=== PATIENT | female | born 1980 | race Caucasian/White ===

== ENCOUNTER 2024-04-09 18:24 | Inpatient (IN) ==
[2024-04-09] MEDS: ONDANSETRON 4 MG/2 ML VIAL IV ONE (19:28)
[2024-04-09] MEDS: 0.9 % SODIUM CHLORIDE 1,000 ML IV ONE (19:28)
[2024-04-09] MEDS: PHENobarb/HYOSCY/ATROPINE/SCOP 1 DOSE BOTTLE PO ONE (19:29)
[2024-04-09] MEDS: MAG HYDROX/AL HYDROX/SIMETH 30 ML ORAL.SUSP PO ONE (19:59)
[2024-04-09] MEDS: DICYCLOMINE 20 MG/2 ML VIAL IM ONE (19:59)
[2024-04-09 20:34] LABS: ALT/SGPT 325 U/L (<40); AST/SGOT 248 U/L (<32); Albumin/Globulin Ratio 1.2 (1.0-2.3); Alkaline Phosphatase 355 U/L (39-117); Bilirubin,Total 0.5 mg/dL (0.1-1.0); Blood Urea Nitrogen 11 mg/dL (6-20); Calcium 9.2 mg/dL (8.6-10.4); Carbon Dioxide 22 mmol/L (22-30); Chloride 102 mmol/L (96-108); Globulin 3.3 gm/dL (2.2-3.7); Glomerular Filtration Rate 111; Glucose 109 mg/dL (70-105); Potassium 3.6 mmol/L (3.3-5.1); Sodium 141 mmol/L (133-145)
[2024-04-09] MEDS: PIPERACILLIN SODIUM/TAZOBACTAM 4.5 GM in DEXTROSE 5% IN WATER 50 ML IV SCH (20:35)
[2024-04-09 21:02] LABS: Basophils # (Auto) 0.03 K/mcL (0.00-0.30); Basophils % (Auto) 0.4 % (0.0-2.0); Eosinophils # (Auto) 0.02 K/mcL (0.00-0.70); Eosinophils % (Auto) 0.3 % (0.0-7.0); Hematocrit 37.8 % (34.1-44.9); Hemoglobin 12.9 g/dL (11.2-15.7); Lymphocytes # (Auto) 4.89 K/mcL (1.50-4.80); Lymphocytes % (Auto) 69.8 % (15.5-49.0); Mean Cell Volume 89.2 fL (80.0-100.0); Mean Corpuscular HGB Conc 34.1 g/dL (31.0-36.0); Mean Platelet Volume 10.3 fL (8.8-12.5); Monocytes % (Auto) 7.1 % (1.0-12.0); Neutrophils % (Auto) 21.5 % (38.0-78.0); Platelet Count 181 K/mcL (140-440); RBC 4.24 M/mcL (3.59-5.38); Red Cell Distribution Width 14.1 % (11.5-14.5)
[2024-04-09] MEDS: morphine 4 MG/ML VIAL IV PRN (21:06)
[2024-04-09] MEDS: 0.9 % SODIUM CHLORIDE 10 ML SYRINGE IV SCH (22:21)
[2024-04-09] MEDS: 0.9 % SODIUM CHLORIDE 1,000 ML IV SCH ×2 (22:21)
[2024-04-09 22:41] LABS: Appearance,Urine Clear (Clear); Bacteria,Urine 0 /hpf (0); Bilirubin,Urine Negative (Negative); Calcium Oxalate Crystals,Urine Few /hpf; Color,Urine Yellow; Culture Indicated,Urine No; Glucose,Urine (UA) Negative (Negative); Ketones,Urine Trace mg/dL (Negative); Leukocyte Esterase,Urine Negative /uL (Negative); Mucus,Urine Many /hpf; Nitrate,Urine Negative (Negative); PH,Urine 6.5 (5.0-9.0); Protein,Urine 30 mg/dL (Negative); Specific Gravity,Urine 1.025 (1.000-1.035); Urine Blood Trace-intact ery/mcL (Negative); Urine RBC 3 /hpf (0-3); Urine Squamous Epithelial Cell 3 /hpf (0-4); Urine WBC 4 /hpf (0-4)
[2024-04-09] MEDS: HYDROmorphone 1 MG/ML SYRINGE IV PRN (23:19)
[2024-04-09] MEDS: ONDANSETRON 4 MG/2 ML VIAL IV PRN (23:19)
[2024-04-10] MEDS: PIPERACILLIN SODIUM/TAZOBACTAM 4.5 GM in DEXTROSE 5% IN WATER 100 ML IV SCH (02:22)
[2024-04-10 06:44] LABS: Basophils # (Auto) 0.02 K/mcL (0.00-0.30); Basophils % (Auto) 0.3 % (0.0-2.0); Eosinophils # (Auto) 0.02 K/mcL (0.00-0.70); Eosinophils % (Auto) 0.3 % (0.0-7.0); Hemoglobin 11.4 g/dL (11.2-15.7); Lymphocytes # (Auto) 4.24 K/mcL (1.50-4.80); Lymphocytes % (Auto) 68.4 % (15.5-49.0); Mean Cell Volume 91.4 fL (80.0-100.0); Mean Corpuscular HGB Conc 33.5 g/dL (31.0-36.0); Mean Platelet Volume 9.4 fL (8.8-12.5); Monocytes # (Auto) 0.34 K/mcL (0.10-0.90); Monocytes % (Auto) 5.5 % (1.0-12.0); Platelet Count 163 K/mcL (140-440); RBC 3.72 M/mcL (3.59-5.38); Red Cell Distribution Width 14.2 % (11.5-14.5); WBC 6.2 K/mcL (4.5-11.0)
[2024-04-10 06:55] LABS: ALT/SGPT 276 U/L (<40); AST/SGOT 194 U/L (<32); Albumin 3.5 gm/dL (3.2-5.2); Albumin/Globulin Ratio 1.3 (1.0-2.3); Alkaline Phosphatase 300 U/L (39-117); Bilirubin,Direct 0.4 mg/dL (<0.3); Bilirubin,Total 0.6 mg/dL (0.1-1.0); Blood Urea Nitrogen 8 mg/dL (6-20); Calcium 8.5 mg/dL (8.6-10.4); Carbon Dioxide 24 mmol/L (22-30); Chloride 104 mmol/L (96-108); Globulin 2.7 gm/dL (2.2-3.7); Glomerular Filtration Rate 111; Glucose 88 mg/dL (70-105); Lactate Dehydrogenase 425 U/L (135-225); Phosphorous 2.5 mg/dL (2.5-4.5); Potassium 3.7 mmol/L (3.3-5.1); Sodium 138 mmol/L (133-145); Triglycerides 99 mg/dL (<150)
[2024-04-10] MEDS ORDERED: METHOCARBAMOL 750 MG TABLET PO PRN (11:46)
[2024-04-10] MEDS: HYDROcodone/APAP 10/325MG TABLET PO PRN (16:16)
[2024-04-10] MEDS: LORazepam 2 MG/ML VIAL IV ONE (18:03)
[2024-04-10 21:10] LABS: Appearance,Urine Clear (Clear); Bacteria,Urine 0 /hpf (0); Bilirubin,Urine Negative (Negative); Color,Urine Yellow; Culture Indicated,Urine No; Glucose,Urine (UA) Negative (Negative); Ketones,Urine Negative (Negative); Leukocyte Esterase,Urine Negative /uL (Negative); Nitrate,Urine Negative (Negative); Protein,Urine Negative (Negative); Urine Blood Small ery/mcL (Negative); Urine RBC 1 /hpf (0-3); Urine Squamous Epithelial Cell 8 /hpf (0-4); Urine WBC 2 /hpf (0-4); Urobilinogen,Urine Normal
[2024-04-11] MEDS ORDERED: IPRATROPIUM/ALBUTEROL 3 ML AMPUL.NEB NEB PRN ×2 (08:30→11:01)
[2024-04-11] MEDS: SCOPOLAMINE 1 PATCH PATCH TOPICAL PRN (08:33)
[2024-04-11] MEDS ORDERED: fentaNYL 100 MCG/2 ML VIAL ONE (08:59)
[2024-04-11] MEDS ORDERED: KETAMINE 50 MG/ML Syringe IV ONE (08:59)
[2024-04-11] MEDS ORDERED: PROPOFOL 200 MG/20 ML VIAL IV ONE (08:59)
[2024-04-11] MEDS ORDERED: DEXAMETHASONE 10 MG/ML VIAL ONE (09:00)
[2024-04-11] MEDS ORDERED: ROCURONIUM 10 MG/ML ML IV ONE (09:00)
[2024-04-11] MEDS ORDERED: ONDANSETRON 4 MG/2 ML VIAL ONE (09:00)
[2024-04-11] MEDS ORDERED: LIDOCAINE 2% PF 5 ML VIAL ONE (09:00)
[2024-04-11] MEDS ORDERED: DEXTROAMPHETAMINE AMPHETAMINE 15 MG PO PRN (09:00)
[2024-04-11] MEDS ORDERED: MAGNESIUM SULFATE 2 GM/50 ML BAG IV ONE (09:00)
[2024-04-11] MEDS: Fluvoxamine 50 mg tablet PO SCH (09:03)
[2024-04-11] MEDS ORDERED: ePHEDrine 50 MG/5 ML SYRINGE (ANEST) IV ONE (10:17)
[2024-04-11] MEDS ORDERED: SUGAMMADEX SODIUM 200 MG/2 ML VIAL IV ONE (10:54)
[2024-04-11] MEDS ORDERED: ONDANSETRON 4 MG/2 ML VIAL IV PRN (11:01)
[2024-04-11] MEDS ORDERED: NALOXONE HCL 0.4 MG/ML VIAL IV PRN (11:01)
[2024-04-11] MEDS ORDERED: LACTATED RINGERS 250 ML IV PRN (11:01)
[2024-04-11] MEDS ORDERED: diphenhydrAMINE 50 MG/ML VIAL IV PRN (11:01)
[2024-04-11] MEDS: KETOROLAC 30 MG/ML VIAL IV PRN (11:32)
[2024-04-11] MEDS: fentaNYL 100 MCG/2 ML VIAL IV PRN (11:33)
[2024-04-11] MEDS: morphine 2 MG/ML VIAL IV PRN (11:50)
[2024-04-11] MEDS: MEPERIDINE 25 MG/ML VIAL IV PRN (11:58)
[2024-04-11] MEDS: METHOCARBAMOL 1,000 MG/10 ML VIAL IV PRN (11:58)
[2024-04-11] MEDS: 0.9 % SODIUM CHLORIDE 10 ML SYRINGE IV SCH (13:08)
[2024-04-11] MEDS: LORazepam 2 MG/ML VIAL IV PRN (13:58)
[2024-04-11] MEDS ORDERED: ACETAMINOPHEN 1,000 MG/100 ML BAG IV PRN (14:00)
[2024-04-11] MEDS: LACTATED RINGERS 1,000 ML IV SCH (14:54)
[2024-04-11] MEDS: ACETAMINOPHEN 1,000 MG/100 ML BAG IV ONE (14:55)
[2024-04-11] MEDS: ACETAMINOPHEN 1,000 MG/100 ML BAG IV SCH (16:35)
[2024-04-11] MEDS: morphine 4 MG/ML VIAL IV PRN (18:47)
[2024-04-11] MEDS: KETOROLAC 30 MG/ML VIAL IV SCH (21:02)
[2024-04-12 06:33] LABS: Hemoglobin 12.1 g/dL (11.2-15.7); Mean Cell Volume 102.2 fL (80.0-100.0); Mean Corpuscular HGB Conc 29.5 g/dL (31.0-36.0); Mean Platelet Volume 9.4 fL (8.8-12.5); Platelet Count 100 K/mcL (140-440); RBC 4.01 M/mcL (3.59-5.38); Red Cell Distribution Width 14.5 % (11.5-14.5); WBC 7.1 K/mcL (4.5-11.0)
[2024-04-12 06:39] LABS: ALT/SGPT 227 U/L (<40); AST/SGOT 105 U/L (<32); Albumin 3.5 gm/dL (3.2-5.2); Albumin/Globulin Ratio 1.3 (1.0-2.3); Alkaline Phosphatase 314 U/L (39-117); Bilirubin,Direct 0.3 mg/dL (<0.3); Bilirubin,Total 0.4 mg/dL (0.1-1.0); Blood Urea Nitrogen 5 mg/dL (6-20); Calcium 8.7 mg/dL (8.6-10.4); Carbon Dioxide 22 mmol/L (22-30); Chloride 107 mmol/L (96-108); Globulin 2.6 gm/dL (2.2-3.7); Glomerular Filtration Rate 111; Glucose 110 mg/dL (70-105); Lactate Dehydrogenase 405 U/L (135-225); Phosphorous 2.9 mg/dL (2.5-4.5); Potassium 4.2 mmol/L (3.3-5.1); Sodium 142 mmol/L (133-145); Triglycerides 109 mg/dL (<150); Uric Acid 2.4 mg/dL (2.5-8.0)
== END 2024-04-12 14:35 | disposition home or self-care (01) | DRG 419 ==
LOC: ED 18:24 → MEDSUR 21:53
PROVIDERS: ADMIT Family Medicine Adult Medicine; ATTEND Family Medicine Adult Medicine